=== PATIENT | male | born 1960 | race Caucasian/White ===

== ENCOUNTER 2024-10-19 22:20 | Emergency (ER) | payer MEDICAID, OTHER ==
[~2024-10-19] VITALS: Ht 167.6 cm; Wt 118.0 kg
[2024-10-19 22:22] VITALS: BP 135/61; PULSE 117; RESP 16; TEMP 36.8; O2SAT 100
[2024-10-19] MEDS ORDERED: TETANUS, DIPHTHERIA, PERTUSSIS VAC/PF 0.5ML (>10YR OLD) IM ONE (23:15)
[2024-10-19] MEDS: BACITRACIN ZINC OINT UDPKT TOP ONE (23:55)
[2024-10-19] MEDS: LIDOCAINE HCL/EPINEPHRINE 1%-EPI 1:100,000 20ML VIAL INFIL ONE (23:55)
[2024-10-20] MEDS: TETANUS, DIPHTHERIA, PERTUSSIS VAC/PF 0.5ML (>10YR OLD) IM ONE (01:10)
[2024-10-21] MEDS ORDERED: IBUP-2029 MT (15:47)
== END 2024-10-20 01:25 | disposition home or self-care (01) ==
LOC: ER 22:20
DX: S01.01XA Laceration without foreign body of scalp, initial encounter (principal); S09.90XA Unspecified injury of head, initial encounter; I10 Essential (primary) hypertension; Z86.59 Personal history of other mental and behavioral disorders; Y04.0XXA Assault by unarmed brawl or fight, initial encounter; Y93.89 Activity, other specified; Y92.89 Other specified places as the place of occurrence of the external cause; Y99.8 Other external cause status
CPT/HCPCS: 99285; 70450; 12001; 90715; 90471; J2004

== ENCOUNTER 2024-10-21 11:33 | Emergency (ER) | payer OTHER ==
[~2024-10-21] VITALS: Ht 172.7 cm; Wt 120.2 kg
[2024-10-21 11:37] VITALS: BP 163/87; TEMP 37; O2SAT 97
[2024-10-21 11:42] VITALS: PULSE 111; RESP 18; O2SAT 99
[2024-10-21] MEDS: HYDROCODONE/ACETAMINOPHEN 5/325MG TABLET PO ONE (14:48)
[2024-10-21] MEDS ORDERED: IBUP-2029 MT (15:47)
== END 2024-10-21 16:46 | disposition home or self-care (01) ==
LOC: ER 11:33
DX: S01.01XD Laceration without foreign body of scalp, subsequent encounter (principal); R07.89 Other chest pain; M19.90 Unspecified osteoarthritis, unspecified site; I10 Essential (primary) hypertension; Z79.899 Other long term (current) drug therapy; X58.XXXD Exposure to other specified factors, subsequent encounter
CPT/HCPCS: 71101; 93005; 99283